=== PATIENT | male | born 1995 | race Two or more races ===

== ENCOUNTER 2017-11-01 20:18 | Emergency (ER) | payer OTHER ==
[~2017-11-01] VITALS: Ht 170.2 cm; Wt 98.4 kg
[2017-11-01 20:20] VITALS: BP 137/77
[2017-11-01] MEDS ORDERED: ondansetron 4mg rapidly disintigrating tab PO ONE (20:35)
== END 2017-11-01 20:46 | disposition home or self-care (01) ==
LOC: ER 20:19
DX: S20.211A Contusion of right front wall of thorax, initial encounter (principal); S09.90XA Unspecified injury of head, initial encounter; R11.0 Nausea; Z56.0 Unemployment, unspecified; Y04.0XXA Assault by unarmed brawl or fight, initial encounter; Y93.89 Activity, other specified; Y92.89 Other specified places as the place of occurrence of the external cause; Y99.9 Unspecified external cause status
CPT/HCPCS: 99282

== ENCOUNTER 2019-05-06 02:26 | Emergency (ER) | payer OTHER ==
[~2019-05-06] VITALS: Ht 171.4 cm; Wt 94.5 kg
[2019-05-06 02:37] VITALS: BP 144/82
--- NOTE | 2019-05-06 02:52 | NUR ---
cleansed the blood from his face/eye. will await to irrigate wound until it is numbed.
[2019-05-06] MEDS ORDERED: LIDOcaine 1% W/epiNEPHrine 1:200,000 10ml vial IJ ONE (03:00)
[2019-05-06] MEDS ORDERED: acetaminophen 325mg tablet PO ONE (03:55)
== END 2019-05-06 03:55 | disposition home or self-care (01) ==
LOC: ER 02:27 → EEVIPCON 02:27 → ER 03:55
DX: S06.0X0A Concussion without loss of consciousness, initial encounter (principal); S01.81XA Laceration without foreign body of other part of head, initial encounter; Y04.0XXA Assault by unarmed brawl or fight, initial encounter; Y93.89 Activity, other specified; Y92.89 Other specified places as the place of occurrence of the external cause; Y99.9 Unspecified external cause status
CPT/HCPCS: 12052; 99284

== ENCOUNTER 2020-05-18 03:46 | Emergency (ER) | payer BC, OTHER ==
[~2020-05-18] VITALS: Ht 170.2 cm; Wt 100.5 kg
[2020-05-18] MEDS ORDERED: dexamethasone 4mg tablet PO ONE (04:45)
[2020-05-18] MEDS ORDERED: azithromycin 250mg tablet PO ONE (04:55)
[2020-05-18] MEDS ORDERED: ONDA4TAB6 PO (04:55)
[2020-05-18] MEDS ORDERED: AZIT250T PO (04:55)
[2020-05-18] MEDS ORDERED: ondansetron 4mg rapidly disintigrating tab PO ONE (05:00)
[2020-05-18 05:07] VITALS: BP 141/81
[2020-05-18] MEDS ORDERED: DEXAMETHASONE 6 MG TABLET PO SCH (08:00)
== END 2020-05-18 05:11 | disposition home or self-care (01) ==
LOC: ER 03:47
DX: B34.9 Viral infection, unspecified (principal); Z20.822 Contact with and (suspected) exposure to COVID-19; Z79.899 Other long term (current) drug therapy
CPT/HCPCS: 36415; 71045; 87502; 87503; 87635; 99284